=== PATIENT | male | born 1975 | race Caucasian/White ===

== ENCOUNTER 2018-02-05 09:43 | Emergency (ER) | payer SELFPAY ==
[2018-02-05] MEDS ORDERED: Linezolid 600 MG in Premix Bag 1 BAG IV ONE (09:57)
[2018-02-05] MEDS ORDERED: Doxycycline 100 MG Cap PO ONE (09:57)
--- NOTE | 2018-02-05 09:58 | EDM.PDOCBH ---
ED HPI GENERAL MEDICAL PROBLEM - General Chief Complaint: Neurological Problem Stated Complaint: DISORIENTATED/SORES ON ARM Time Seen by Provider: 02/05/18 09:53 Source of Information: Reports: Patient History Limitations: Reports: No Limitations - History of Present Illness INITIAL COMMENTS - FREE TEXT/NARRATIVE: 42-year-old male presents to the ED from the [facility] where he is currently residing for methamphetamine addiction. Presents at their request due to erythema swelling particularly of the left forearm and wrist area. He has multiple puncture sites on both forearms from needle sticks. It appears that several of them have become secondarily infected particularly on the left forearm area it appears to have almost hematomas underneath a lot of the injection sites. He is also been using his feet and ankle areas for IV injection sites as well. These do not appear to be infected. He denies feeling ill such as fever chills nausea vomiting or headache. He is been sleeping a great deal of time and concern is for possible dehydration as well. Onset: Gradual (Over the last 2-3 days. ) Duration: Day(s): Location: Reports: Upper Extremity, Left, Upper Extremity, Right - Related Data Allergies Allergy/AdvReac Type Severity Reaction Status Date / Time No Known Allergies Allergy Verified 10/26/17 09:50 CDT Home Meds: Home Meds Erythromycin Base [Erythromycin 0.5% Ophth Oint] 1 applic OP Q4H 5 Days #1 tube 01/26/18 [Rx] Doxycycline [Vibramycin] 100 mg PO BID #20 tab 02/05/18 [Rx] cloNIDine [Catapres] 0.1 mg PO Q12HR #10 tab 02/05/18 [Rx] Past Medical History Musculoskeletal History: Reports: Other (See Below) Other Musculoskeletal History: right arm surgery Psychiatric History: Reports: Addiction (To intravenous methamphetamines.), Bipolar Social & Family History - Caffeine Use Caffeine Use: Reports: Coffee, Energy Drinks, Soda, Tea - Living Situation & Occupation Living situation: Reports: Single Occupation: Unemployed (Current residing at the [facility] crisis center here in [place] for methamphetamine addiction and treatment.) ED ROS GENERAL - Review of Systems Review Of Systems: See Below Constitutional: Reports: Malaise, Weakness, Fatigue, Decreased Appetite. Denies : Fever, Chills HEENT: Reports: No Symptoms Respiratory: Reports: No Symptoms Cardiovascular: Reports: No Symptoms Endocrine: Reports: No Symptoms GI/Abdominal: Reports: No Symptoms. Denies: Flatus, Vomiting : Reports: No Symptoms Musculoskeletal: Reports: No Symptoms Skin: Reports: Other (See history of present illness but he has lumps under all of his injection sites where he's been injecting methamphetamines both forearms and wrist areas. The left side is showing increased erythema and mild pain to palpation. Apparently worse than the last 2 days.) Neurological: Reports: Weakness, Other (Just wants to sleep. Hasn't been up and eating very much.) Psychiatric: Reports: Depression. Denies: Agitation, Anxiety, Confusion, Cravings, Hallucinations, Mood Lability, Suicidal Ideation Hematologic/Lymphatic: Reports: No Symptoms Immunologic: Reports: No Symptoms ED EXAM, BEHAVIORAL HEALTH - Physical Exam Exam: See Below Exam Limited By: No Limitations General Appearance: Alert, WD/WN, No Apparent Distress, Other (Cooperative and pleasant.) Eye Exam: Bilateral Eye: Normal Inspection Throat/Mouth: Other Head: Atraumatic, Normocephalic (Tongue is dry and coated.) Neck: Normal Inspection, Supple, Non-Tender, Full Range of Motion. No: Lymphadenopathy (L), Lymphadenopathy (R) Respiratory/Chest: No Respiratory Distress, Lungs Clear, Normal Breath Sounds, No Accessory Muscle Use Cardiovascular: Normal Peripheral Pulses, Regular Rate, Rhythm, No Edema, No Gallop, No Murmur GI/Abdominal: Normal Bowel Sounds, Soft, Non-Tender, No Organomegaly, No Distention, No Abnormal Bruit, No Mass, Pelvis Stable Extremities: Other (Patient has multiple puncture wounds estimated to be 8 or 9 to each forearm and wrist area on the volar surfaces bilaterally. Many of the lesions seem to have hematoma formation underneath them. None are exuding pus. On the left forearm between the mid aspect it is increased warmth and evidence of developing cellulitis. He has no systemic signs of illness such as fever chills nausea or vomiting. He is hypertensive on initial assessment at 1 .) Neurological: Alert, Normal Mood/Affect, CN II-XII Intact, Normal Cognition, Normal Reflexes, No Motor/Sensory Deficits, Oriented x 3 Psychiatric: Alert, Flat Affect Skin Exam: Warm, Dry, Needle chen (See history of present illness bilateral forearms molar surfaces), Other COURSE, BEHAVIORAL HEALTH COMP - Course Vital Signs: Last Vital Signs Temp 35.7 C 02/05/18 09:48 Pulse 94 02/05/18 09:48 Resp 17 02/05/18 09:48 BP 130/87 02/05/18 13:36 Pulse Ox 96 02/05/18 09:48 Orthostatic Blood Pressure [ 120/87 Standing] Orthostatic Blood Pressure [ 132/93 Sitting] Orthostatic Blood Pressure [ 119/87 Supine] Orders, Labs, Meds: Laboratory Tests 02/05/18 Range/Units 11:12 Urine Color Yellow (Yellow) Urine Appearance Clear (Clear) Urine pH 6.5 (5.0-8.0) Ur Specific [place] 1.015 (1.005-1.030) Urine Protein Negative (Negative) Urine Glucose (UA) Negative (Negative) Urine Ketones 2+ H (Negative) Urine Occult Blood Negative (Negative) Urine Nitrite Negative (Negative) Urine Bilirubin Negative (Negative) Urine Urobilinogen 1.0 (0.2-1.0) Ur Leukocyte Esterase Negative (Negative) Urine RBC 0-5 (0-5) /hpf Urine WBC 0-5 (0-5) /hpf Ur Epithelial Cells 0-5 (0-5) /hpf Amorphous Sediment Few H (NOT SEEN) /hpf Urine Bacteria Few (FEW) /hpf Urine Mucus Few (FEW) /hpf Medications Discontinued Medications Generic Name Dose Route Start Last Admin Trade Name Stanley PRN Reason Stop Dose Admin Ceftriaxone Sodium 1 gm 02/05/18 10:13 02/05/18 10:48 Rocephin IM 02/05/18 10:14 1 gm ONETIME ONE Administration Clonidine HCl 0.2 mg 02/05/18 13:20 02/05/18 13:36 Catapres PO 02/05/18 13:21 0.2 mg ONETIME ONE Administration Doxycycline Hyclate 200 mg 02/05/18 09:57 02/05/18 10:48 Vibramycin PO 02/05/18 09:58 200 mg ONETIME ONE Administration Doxycycline Hyclate 200 mg 02/05/18 13:20 02/05/18 13:38 Vibramycin PO 02/05/18 13:21 100 mg ONETIME ONE Administration Dextrose/Lactated Ringer's 1,000 mls @ 999 mls/hr 02/05/18 10:00 Dextrose 5%-Lactated Ringers IV ASDIRECTED DWIGHT Linezolid 600 mg/ Premix 300 mls @ 300 mls/hr 02/05/18 09:57 IV 02/05/18 10:56 ONETIME ONE Lidocaine HCl 2 ml 02/05/18 10:13 02/05/18 10:48 Xylocaine-Mpf 1% INJECT 02/05/18 10:14 2 ml ONETIME ONE Administration Re-Assessment/Re-Exam: 42-year-old male who is a known intravenous drug abuser primarily with methamphetamines to my knowledge. Is question whether he was using heroin as well. At any rate he is currently residing at the residential crisis center here in [place] for methamphetamine treatment. He states he just wants to sleep he hasn't been up much to eat or drink. Care workers are concerned he may be dehydrated. Was sent to the ED primarily for reevaluation of his posture wounds to the volar aspect of both arms as it appears that they are becoming infected. I concur that there is early cellulitis and infection developing particularly in the mid volar forearm area. Many of the lesions are tender to touch. Plan IV fluids D5 LR at open. Routine labs to be collected will start him on Zyvox 600 mg IV on the presumption this may well be MRSA. Cycrin 200 mg be given by mouth. Re-Assessment/Re-Exam Date: 02/05/18 (Nurses report unable to find any veins to access to provide intravenous fluids. Also IV antibiotic with cannot be utilized. Will therefore give him an IM injection of Rocephin 1 g IM with lidocaine.) Re-Assessment/Re-Exam Time: 12:17 (Orthostatic BPs were essentially normal. Urinalysis shows a specific gravity of 1.015 which is perfectly normal showing no evidence of concentrated urine or dehydration. He has voided 500 mils of urine since he's been here. He is drinking his second bottle of Gatorade. He was after dinner but he decided wasn't very hungry. Apparently the [facility] center said they would not accept him back because they feel he is dehydrated. The orthostatic BPs and the fact that he is voiding well and drinking normally do not support this diagnosis. We had to give him IM injection of Rocephin and oral doxycycline for his infective process. He is afebrile however and is not showing any systemic signs of illness. If [facility] center refuses to take him back for care he will be discharged from our facility.) Medical Clearance: 02/05/18 13:14 patient is drank 2 large bottles of Gatorade without any problems. His voided twice while in the ED. There are no clinical or overt signs of dehydration. Urinalysis again reveals a normal specific gravity indicating he is not volume depleted. I will have the nurses discussed these findings with the [facility]. The plan will be to either return to that facility or he will be released from the hospital on his own recognizance. He will require doxycycline 100 mg twice daily for the next 10 days to clear up skin infection. This will cover for MRSA infection. Present there are no open draining lesions that would warrant isolation precautions. Departure - Departure Time of Disposition: 13:19 Disposition: Home, Self-Care 01 Condition: Fair Clinical Impression: Cellulitis of left forearm, Methamphetamine addiction - Discharge Information *PRESCRIPTION DRUG MONITORING PROGRAM REVIEWED*: Not Applicable *COPY OF PRESCRIPTION DRUG MONITORING REPORT IN PATIENT JAC: Not Applicable Prescriptions: cloNIDine [Catapres] 0.1 mg PO Q12HR #10 tab Doxycycline [Vibramycin] 100 mg PO BID #20 tab Instructions: Cellulitis, Adult, Stimulant Use Disorder-Methamphetamines Referrals: PCP,None [Primary Care Provider] - Forms: ED Department Discharge Additional Instructions: 42-year-old male presents from the [facility] with known intravenous drug abuse using methamphetamines primarily. He's been at the Center for the last 3 days. Care workers appreciated development of some mild erythema and increased pain in his left mid forearm area. He has multiple IV sticks in both lower forearms and his feet. IV access was never obtained in the ED to obtain lab work. Multiple persons including 3 different lab techs tried as well as nursing staff. Labs were available from last when he was admitted. He is afebrile. Concerns for dehydration or voiced by care workers. His orthostatic BPs are essentially normal and his urinalysis that he produced shows a specific gravity of 1.015 which does not show any signs of significant volume depletion ordered dehydration. He drank 2 bottles of Gatorade well he's been in the ED and voided over 500 mils on [address] him on clonidine 0.1 mg twice a day to help with his withdrawal symptoms. He will be on doxycycline 100 mg twice daily for the next 10 days for skin infection and this will cover for MRSA. No open wounds or drainage from any of these lesions at this time that would require body fluid precaution.
[2018-02-05] MEDS ORDERED: Dextrose 5%-Lactated Ringers 1,000 ML IV SCH (10:00)
[2018-02-05] MEDS ORDERED: cefTRIAXone 1 GM Vial IM ONE (10:13)
[2018-02-05] MEDS ORDERED: Lidocaine 1% PF 2 ML SDV INJECT ONE (10:13)
[2018-02-05] MEDS ORDERED: cloNIDine 0.1 MG Tab PO ONE (13:20)
[2018-02-05 13:38] VITALS: BP 130/87
[2018-02-05] MEDS: Doxycycline 100 MG Cap PO ONE (13:38)
== END 2018-02-05 13:34 | disposition home or self-care (01) ==
LOC: MERGE 09:43 → JD.ED 09:43
DX: L03.114 Cellulitis of left upper limb (principal); F15.20 Other stimulant dependence, uncomplicated
CPT/HCPCS: 81001; 96372; 99285; A9270; J0696; 99284; J2001